=== PATIENT | female | born 1930 | race Caucasian/White ===

== ENCOUNTER 2016-08-10 19:27 | Inpatient (IN) | payer OTHER, BC ==
[2016-08-10 20:22] VITALS: BMI 20.2
[2016-08-10] MEDS ORDERED: ASPIRIN 81 MG CHEWABLE TABLETS PO ONE (21:42)
[2016-08-10] MEDS ORDERED: ASPIRIN 81 MG CHEWABLE TABLETS ONE (21:55)
[2016-08-10 22:21] LABS: BASOPHIL 0.6 % (0-2.0); EOSINOPHIL 1.1 % (0-4.5); MCHC 31.1 g/dl (32.0-36.0); MEAN CELL VOLUME 59.5 fl (80-96); MEAN PLT VOLUME 8.9 fl (7.5-11.1); PLATELET COUNT 152 K/MM3 (134-434); RDW 15.9 % (11.6-15.6); WHITE BLOOD COUNT 4.2 K/mm3 (4.0-10.0)
[2016-08-10 22:22] LABS: MCH 18.5 pg (25.7-33.7)
[2016-08-10] MEDS ORDERED: HEPARIN NA (PORCINE) 5,000 UNITS/ML 1ML VIAL IVPUSH PRN ×2 (22:23)
--- NOTE | 2016-08-10 22:23 | PDOC ---
History of Present Illness - General History Source: Patient Exam Limitations: No Limitations <Cynthia Chacon - Last Filed: 08/10/16 23:19> <Faby Rodriges - Last Filed: 08/12/16 02:29> - General Chief Complaint: Palpitations Stated Complaint: PCP SENT/ADMIT Time Seen by Provider: 08/10/16 21:13 - History of Present Illness Initial Comments: 08/10/16 23:19 Patient is a 86 year old female with a significant past medical history of colon ca, CVA with left residule weakness, CAD (stents in place), diastolic dysfunction and parathyroidism who presents to the ED sent by Dr. Arora with new onset Afib. As per Dr. Arora the patient has a 2:1 aflutter. Patient reports reports palpitations earlier today for which she was seen by Dr. Arora. PCP - Dr. Lozoya Cardiology - Dr. Arora (Cynthia Chacon) Past History <Cynthia Chacon - Last Filed: 08/10/16 23:19> - Past Medical History Cancer: Yes (colon) Cardiac Disorders: Yes (3 cardiac stents 2008, 1 stent 2009) CVA: Yes (2008, residule weakness to left side) Thyroid Disease: (parathyroid "problem) Other medical history: macular degeneration, thalassemia trait - Surgical History Abdominal Surgery: Yes (colon resection) Cardiac Surgery: Yes (4 stents) - Immunization History Immunization Up to Date: Yes - Psycho/Social/Smoking Cessation Hx Suicidal Ideation: No Smoking History: Former smoker If you are a former smoker, when did you quit?: 1999 Information on smoking cessation initiated: No Hx Alcohol Use: No Drug/Substance Use Hx: No <Faby Rodriges - Last Filed: 08/12/16 02:29> - Past Medical History Allergies/Adverse Reactions: Allergies Allergy/AdvReac Type Severity Reaction Status Date / Time No Known Allergies Allergy Verified 08/10/16 20:19 Home Medications: Ambulatory Orders Metoprolol Succinate [Toprol Xl] 100 mg PO DAILY 08/10/16 Ranolazine [Ranexa] 500 mg PO DAILY 08/10/16 Rosuvastatin Calcium [Crestor] 20 mg PO ASDIR 08/10/16 Rosuvastatin Calcium [Crestor] 40 mg PO ASDIR 08/10/16 Telmisartan [Micardis] 80 mg PO DAILY 08/10/16 Apixaban [Eliquis -] 2.5 mg PO BID tablet 08/11/16 Review of Systems - Review of Systems Able to Perform ROS?: Yes <Cynthia Chacon - Last Filed: 08/10/16 23:19> <Faby Rodriges - Last Filed: 08/12/16 02:29> - Review of Systems Comments:: 08/10/16 23:22 CONSTITUTIONAL: Absent: fever, chills, diaphoresis, generalized weakness, malaise, loss of appetite HEENT: Absent: rhinorrhea, nasal congestion, throat pain, throat swelling, difficulty swallowing, mouth swelling, ear pain, eye pain, visual Changes CARDIOVASCULAR: Present: palpitations Absent: chest pain, syncope, irregular heart rate, lightheadedness, peripheral edema RESPIRATORY: Absent: cough, shortness of breath, dyspnea with exertion, orthopnea, wheezing, stridor, hemoptysis GASTROINTESTINAL: Absent: abdominal pain, abdominal distension, nausea, vomiting, diarrhea, constipation, melena, hematochezia GENITOURINARY: Absent: dysuria, frequency, urgency, hesitancy, hematuria, flank pain, genital pain MUSCULOSKELETAL: Absent: myalgia, arthralgia, joint swelling SKIN: Absent: rash, itching, pallor HEMATOLOGIC/IMMUNOLOGIC: Absent: easy bleeding, easy bruising, lymphadenopathy, frequent infections ENDOCRINE: Absent: unexplained weight gain, unexplained weight loss, heat intolerance, cold intolerance NEUROLOGIC: Absent: headache, focal weakness or paresthesias, dizziness, unsteady gait, seizure, mental status changes, bladder or bowel incontinence PSYCHIATRIC: Absent: anxiety, depression, suicidal or homicidal ideation, hallucinations. (Cynthia Chacon) *Physical Exam <Cynthia Chacon - Last Filed: 08/10/16 23:19> <Faby Rodriges - Last Filed: 08/12/16 02:29> - Vital Signs Last Vital Signs Temp Pulse Resp BP Pulse Ox 98 F 78 18 109/78 98 08/11/16 12:17 08/11/16 12:17 08/11/16 12:17 08/11/16 12:17 08/11/16 12:17 - Physical Exam Comments: 08/10/16 23:23 GENERAL: Well developed, well nourished. Awake and alert. No acute distress. HEENT: Normocephalic, atraumatic. PERRLA, EOMI. No conjunctival pallor. Sclera are non- icteric. Moist mucous membranes. Oropharynx is clear. NECK: Supple. Full ROM. No JVD. Carotid pulses 2+ and symmetric, without bruits. No thyromegaly. No lymphadenopathy. CARDIOVASCULAR: Regular rate and rhythm. No murmurs, rubs, or gallops. Distal pulses are 2+ and symmetric. PULMONARY: No evidence of respiratory distress. Lungs clear to auscultation bilaterally. No wheezing, rales or rhonchi. ABDOMINAL: Soft. Non-tender. Non-distended. No rebound or guarding. No organomegaly. Normoactive bowel sounds. MUSCULOSKELETAL Normal range of motion at all joints. No bony deformities or tenderness. No CVA tenderness. EXTREMITIES: No cyanosis. No clubbing. No edema. No calf tenderness. SKIN: Warm and dry. Normal capillary refill. No rashes. No jaundice. NEUROLOGICAL: Alert, awake, appropriate. Cranial nerves 2-12 intact. No deficits to light touch and temperature in face, upper extremities and lower extremities. No motor deficits in the in face, upper extremities and lower extremities. Normoreflexic in the upper and lower extremities. Normal speech. Toes are down-going bilaterally. Gait is normal without ataxia. PSYCHIATRIC: Cooperative. Good eye contact. Appropriate mood and affect. (Cynthia Chacon) ED Treatment Course - LABORATORY CBC & Chemistry Diagram: 08/10/16 22:10 08/10/16 22:10 <Cynthia Chacon - Last Filed: 08/10/16 23:19> - LABORATORY CBC & Chemistry Diagram: 08/10/16 22:10 08/10/16 22:10 <Faby Rodriges - Last Filed: 08/12/16 02:29> - ADDITIONAL ORDERS Additional order review: 08/10/16 22:10 RBC 4.99 MCV 59.5 L MCHC 31.1 L RDW 15.9 H MPV 8.9 Neutrophils % 51.0 Lymphocytes % 35.6 Monocytes % 11.7 H Eosinophils % 1.1 Basophils % 0.6 - RADIOLOGY Radiology Studies Ordered: Category Date Time Status CHEST X-RAY PORTABLE* [RAD] Stat Radiology 08/10/16 21:42 Completed - Medications Given in the ED: ED Medications Discontinued Medications Generic Name Dose Route Start Last Admin Trade Name Armaan PRN Reason Stop Dose Admin Aspirin 162 mg 08/10/16 21:42 08/10/16 22:08 Asa - PO 08/10/16 21:43 162 mg ONCE ONE Administration Heparin Sodium (Porcine) 5,000 unit 08/10/16 22:23 08/10/16 23:14 Heparin - IVPUSH 5,000 unit PRN PRN Administration Heparin Heparin Sodium (Porcine) 25, 500 mls @ 16 mls/hr 08/10/16 22:30 08/11/16 07:16 000 unit/ Sodium Chloride IV 500 unit/hr TITR BERNARD Titration Protocol 800 UNIT/HR Metoprolol Succinate 100 mg 08/11/16 10:00 08/11/16 09:58 Toprol Xl - PO 100 mg DAILY BERANRD Administration Ranolazine 500 mg 08/11/16 10:00 08/11/16 09:58 Ranexa - PO 500 mg DAILY BERNARD Administration Valsartan 320 mg 08/11/16 10:00 08/11/16 09:57 Diovan - PO 320 mg DAILY BERNARD Administration Medical Decision Making <Cynthia Chacon - Last Filed: 08/10/16 23:19> <Faby Rodriges - Last Filed: 08/12/16 02:29> - Medical Decision Making 08/10/16 22:56 A call was placed to Dr. Arora. Awaiting a call back from Dr. Rivera who is accounting manager controller. 08/10/16 22:[address] Rivera. (Cynthia Chacon) 08/12/16 02:25 this 86 yo female was initially referred in by Dr Zaidi for new onset aflutter -she had gone to his office for routine visit.she didnt have chest pain but had felt palpitations -upon arrival to ER ,ekg showed she was back in sinus rhythm -however her troponin came back elevated and so she was started on heparin and admitted to telemetry (Faby Rodriges) *DC/Admit/Observation/Transfer <Cynthia Chacon - Last Filed: 08/10/16 23:19> - Discharge Dispostion Admit: Yes <Faby Rodriges - Last Filed: 08/12/16 02:29> Diagnosis at time of Disposition: Palpitations, Elevated troponin - Discharge Dispostion Condition at time of disposition: Improved - Referrals - Attestations Scribe Attestion: 08/10/16 23:23 Documentation prepared by WILMER Bah, acting as medical dosimetrist for Faby Rodriges MD. (Cynthia Chacon)
[2016-08-10] MEDS ORDERED: HEPARIN - 25,000 UNIT in SODIUM CHLORIDE 495 ML IV SCH (22:30)
[2016-08-10 22:35] LABS: INR 1.02 (0.82-1.09); PROTHROMBIN TIME (PATIENT) 11.2 SEC (9.98-11.88)
[2016-08-10 22:46] LABS: ALBUMIN 3.8 g/dl (3.4-5.0); BILIRUBIN,TOTAL 0.5 mg/dL (0.2-1.0); CALCIUM 12.4 mg/dL (8.5-10.1); CREATININE 1.6 mg/dL (0.55-1.02); MAGNESIUM 2.4 mg/dL (1.8-2.4); TOT PROT 7.1 g/dl (6.4-8.2)
[2016-08-10 23:00] LABS: TROPONIN I 1.15 ng/ml (0.00-0.05)
[2016-08-10] MEDS ORDERED: HEPARIN INFUSION - 500 ML IVPB ONE (23:03)
[2016-08-10 23:41] LABS: ANISOCYTOSIS 3+; HYPOCHROMIA 2+; MICROCYTOSIS 3+; PLATELET ESTIMATE ADEQUATE (NORMAL)
[2016-08-10 23:54] LABS: URINE APPEARANCE CLEAR; URINE BILIRUBIN NEGATIVE (NEGATIVE); URINE BLOOD NEGATIVE (NEGATIVE); URINE COLOR STRAW; URINE GLUCOSE (UA) NEGATIVE (NEGATIVE); URINE KETONE NEGATIVE (NEGATIVE); URINE NITRITE NEGATIVE (NEGATIVE); URINE PROTEIN NEGATIVE (NEGATIVE); URINE UROBILINOGEN NEGATIVE E.U./dl (0.2-1.0)
[2016-08-11 00:08] LABS: URINE LEUK ESTERASE 2+ (NEGATIVE)
[2016-08-11 00:10] LABS: URINE BACTERIA RARE /hpf (NONE SEEN); URINE HYALINE CAST 1 /lpf; URINE RBC 4 /hpf (0-3); URINE WBC 24 /hpf (3-5)
[2016-08-11] MEDS ORDERED: RANOLAZINE E.R. 500 MG TABLET (FP) PO SCH (10:00)
[2016-08-11] MEDS ORDERED: VALSARTAN 160 MG TABLET (UD) PO SCH (10:00)
[2016-08-11] MEDS ORDERED: METOPROLOL SUCCINATE 100 MG TAB.SR.24H (FP) PO SCH (10:00)
--- NOTE | 2016-08-11 10:06 | HP ---
[id number] Chief Complaint: aflutter History of Present Illness: 86 yrs old female sent from Nursing Educator's office for new onset Aflutter. Apparently she was doing well when she felt palpitations and "uneasiness" yesterday. She went to see her internet marketing consultant for her appointment and found to have new onset Aflutter. Placed on heparin drip. No further complaints of palpitations , chest pain or dizziness No SOB History Source: Patient Limitations to Obtaining History: No Limitations - Past Medical History RETAIL AREA MANAGER: Yes: CVA (left sided weakness) Cardiovascular: Yes: CAD, CHF (diastolic dysfunction), HTN, Hyperlipdemia Gastrointestinal: Yes: Cancer (colon cancer) Endocrine: Yes: Hyperparathyroidism - Smoking History Smoking history: Former smoker If you are a former smoker, when did you quit?: 1999 - Alcohol/Substance Use Hx Alcohol Use: No Home Medications - Allergies Allergies/Adverse Reactions: Allergies Allergy/AdvReac Type Severity Reaction Status Date / Time No Known Allergies Allergy Verified 08/10/16 20:19 - Home Medications Home Medications: Ambulatory Orders Metoprolol Succinate [Toprol Xl] 100 mg PO DAILY 08/10/16 Ranolazine [Ranexa] 500 mg PO DAILY 08/10/16 Rosuvastatin Calcium [Crestor] 20 mg PO ASDIR 08/10/16 Rosuvastatin Calcium [Crestor] 40 mg PO ASDIR 08/10/16 Telmisartan [Micardis] 80 mg PO DAILY 08/10/16 Apixaban [Eliquis -] 2.5 mg PO BID tablet 08/11/16 Review of Systems - Review of Systems Constitutional: denies: Chills, Fever, Loss of Appetite, Weakness Cardiovascular: reports: Palpitations. denies: Chest Pain, Shortness of Breath Physical Examination Vital Signs: Vital Signs Temperature 97.9 F 08/11/16 09:56 Pulse Rate 88 08/11/16 09:56 Respiratory Rate 16 08/11/16 09:56 Blood Pressure 121/58 08/11/16 09:56 O2 Sat by Pulse Oximetry (%) 100 08/11/16 09:56 Constitutional: Yes: No Distress, Calm Cardiovascular: Yes: Regular Rate and Rhythm, Murmur (systolic murmur+) Respiratory: Yes: CTA Bilaterally Gastrointestinal: Yes: Normal Bowel Sounds, Soft. No: Distention, Tenderness Edema: No Psychiatric: Yes: Alert, Oriented Labs: Laboratory Last Values WBC 4.2 K/mm3 (4.0-10.0) 08/10/16 22:10 RBC 4.99 M/mm3 (3.60-5.2) 08/10/16 22:10 Hgb 9.2 GM/dL (10.7-15.3) L D 08/10/16 22:10 Hct 29.7 % (32.4-45.2) L 08/10/16 22:10 MCV 59.5 fl (80-96) L 08/10/16 22:10 MCHC 31.1 g/dl (32.0-36.0) L 08/10/16 22:10 RDW 15.9 % (11.6-15.6) H 08/10/16 22:10 Plt Count 152 K/MM3 (134-434) D 08/10/16 22:10 MPV 8.9 fl (7.5-11.1) 08/10/16 22:10 Neutrophils % 51.0 % (42.8-82.8) 08/10/16 22:10 Lymphocytes % 35.6 % (8-40) 08/10/16 22:10 Monocytes % 11.7 % (3.8-10.2) H 08/10/16 22:10 Eosinophils % 1.1 % (0-4.5) 08/10/16 22:10 Basophils % 0.6 % (0-2.0) 08/10/16 22:10 Platelet Estimate Adequate (NORMAL) 08/10/16 22:10 Hypochromic-Microcytic 2+ 08/10/16 22:10 Anisocytosis 3+ 08/10/16 22:10 Microcytosis 3+ 08/10/16 22:10 INR 1.02 (0.82-1.09) 08/10/16 22:10 PTT (Actin FS) > 400.0 SECONDS (26.9-34.4) H 08/11/16 05:25 Sodium 140 mmol/L (136-145) 08/10/16 22:10 Potassium 4.6 mmol/L (3.5-5.1) 08/10/16 22:10 Chloride 107 mmol/L (98-107) 08/10/16 22:10 Carbon Dioxide 23 mmol/L (21-32) 08/10/16 22:10 Anion Gap 10 (8-16) 08/10/16 22:10 BUN 24 mg/dL (7-18) H 08/10/16 22:10 Creatinine 1.6 mg/dL (0.55-1.02) H 08/10/16 22:10 Creat Clearance w eGFR 30.63 (>60) 08/10/16 22:10 Random Glucose 86 mg/dL (74-106) 08/10/16 22:10 Calcium 12.4 mg/dL (8.5-10.1) H 08/10/16 22:10 Magnesium 2.4 mg/dL (1.8-2.4) 08/10/16 22:10 Total Bilirubin 0.5 mg/dL (0.2-1.0) 08/10/16 22:10 AST 23 U/L (15-37) 08/10/16 22:10 ALT 14 U/L (12-78) 08/10/16 22:10 Alkaline Phosphatase 87 U/L (45-117) 08/10/16 22:10 Creatine Kinase 60 IU/L (26-192) 08/10/16 22:10 Troponin I 1.26 ng/ml (0.00-0.05) H* 08/11/16 09:14 Total Protein 7.1 g/dl (6.4-8.2) 08/10/16 22:10 Albumin 3.8 g/dl (3.4-5.0) 08/10/16 22:10 Triglycerides 67 mg/dL (35-160) 08/10/16 22:10 Cholesterol 164 mg/dL (50-200) 08/10/16 22:10 Total LDL Cholesterol 60 mg/dL (5-100) 08/10/16 22:10 HDL Cholesterol 108 mg/dL (40-60) H 08/10/16 22:10 Urine Color Straw 08/10/16 23:45 Urine Appearance Clear 08/10/16 23:45 Urine pH 6.0 (5.0-8.0) 08/10/16 23:45 Ur Specific [place] 1.009 (1.001-1.035) 08/10/16 23:45 Urine Protein Negative (NEGATIVE) 08/10/16 23:45 Urine Glucose (UA) Negative (NEGATIVE) 08/10/16 23:45 Urine Ketones Negative (NEGATIVE) 08/10/16 23:45 Urine Blood Negative (NEGATIVE) 08/10/16 23:45 Urine Nitrite Negative (NEGATIVE) 08/10/16 23:45 Urine Bilirubin Negative (NEGATIVE) 08/10/16 23:45 Urine Urobilinogen Negative E.U./dl (0.2-1.0) 08/10/16 23:45 Ur Leukocyte Esterase 2+ (NEGATIVE) H 08/10/16 23:45 Urine RBC 4 /hpf (0-3) 08/10/16 23:45 Urine WBC 24 /hpf (3-5) 08/10/16 23:45 Ur Epithelial Cells Rare /hpf (FEW) 08/10/16 23:45 Urine Bacteria Rare /hpf (NONE SEEN) 08/10/16 23:45 Hyaline Casts 1 /lpf 08/10/16 23:45 Imaging - Results Chest X-ray: Image Reviewed (clear) EKG: Image Reviewed (NSR,LVH) Problem List - Problems (1) Elevated troponin Code(s): R74.8 - ABNORMAL LEVELS OF OTHER SERUM ENZYMES (2) Palpitations Code(s): R00.2 - PALPITATIONS (3) Atrial flutter Code(s): I48.92 - UNSPECIFIED ATRIAL FLUTTER Assessment/Plan PLAN On Heparin infusion Continue with home meds spoke with Nursing Educator will start Eliquis Elevated troponins due to Atrial flutter She has converted to sinus on her own rate is controlled She will be dc home today on Eliquis Advised to follow up with Nursing Educator and with me within 2 weeks
--- NOTE | 2016-08-11 11:44 | DS ---
Physical Examination Vital Signs: Vital Signs Temperature 97.9 F 08/11/16 09:56 Pulse Rate 88 08/11/16 09:56 Respiratory Rate 16 08/11/16 09:56 Blood Pressure 121/58 08/11/16 09:56 O2 Sat by Pulse Oximetry (%) 100 08/11/16 09:56 Discharge Summary Reason For Visit: PALPITATIONS/ELEVATED TROPONIN LEVELS Current Active Problems Elevated troponin (Acute) Palpitations (Acute) Hospital Course: spoke with DR Arora Pt converted to sinus on her own She is already anticoagulated with Heparin- now on Eliquis. Troponins elevated, Steel Layer aware- she has h/o CAD and is being treated medically. Elevated troponins due to rapid Aflutter Pt is now sinus Stable for dc home Condition: Improved - Instructions Referrals: Haim Arora MD [Primary Care Provider] - 1 Week Ai Anderson MD [Staff Physician] - Disposition: HOME - Home Medications Comprehensive Discharge Medication List: Ambulatory Orders Metoprolol Succinate [Toprol Xl] 100 mg PO DAILY 08/10/16 Ranolazine [Ranexa] 500 mg PO DAILY 08/10/16 Rosuvastatin Calcium [Crestor] 20 mg PO ASDIR 08/10/16 Rosuvastatin Calcium [Crestor] 40 mg PO ASDIR 08/10/16 Telmisartan [Micardis] 80 mg PO DAILY 08/10/16 Apixaban [Eliquis -] 2.5 mg PO BID tablet 08/11/16
--- NOTE | 2016-08-11 11:58 | PN ---
Progress Note (short form) - Note Progress Note: Chief Complaint: Events noted, notes reviewed, denies any chest pain or dyspnea , currently in sinus rhythm, converted spontaneously to sinus rhythm History of Present Illness: Seen and examined on telemetry. Full consult dictated - Current Medication List Current Medications Heparin Sodium (Porcine) (Heparin -) 1,000 unit IVPUSH PRN PRN PRN Reason: Heparin Heparin Sodium (Porcine) (Heparin -) 5,000 unit IVPUSH PRN PRN PRN Reason: Heparin Last Admin: 08/10/16 23:14 Dose: 5,000 unit Heparin Sodium (Porcine) 25, (000 unit/ Sodium Chloride) 500 mls @ 16 mls/hr IV TITR BERNARD; 800 UNIT/HR PRN Reason: Protocol Last Titration: 08/11/16 07:16 Dose: 500 unit/hr Metoprolol Succinate (Toprol Xl -) 100 mg PO DAILY [facility] Last Admin: 08/11/16 09:58 Dose: 100 mg Ranolazine (Ranexa -) 500 mg PO DAILY [facility] Last Admin: 08/11/16 09:58 Dose: 500 mg Rosuvastatin Calcium (Crestor -) 20 mg PO HS [facility] Valsartan (Diovan -) 320 mg PO DAILY [facility] Last Admin: 08/11/16 09:57 Dose: 320 mg - Review of Systems Cardiovascular: As noted above Respiratory: denies: Cough or Sputum Production Gastrointestinal: denies: Nausea, Vomiting, Diarrhea, Constipation or Abdominal Pain Musculoskeletal: No symptoms reported Neurological: No symptoms reported - Objective Vital Signs: Last Vital Signs Temp Pulse Resp BP Pulse Ox 97.9 F 88 16 121/58 100 08/11/16 09:56 08/11/16 09:56 08/11/16 09:56 08/11/16 09:56 08/11/16 09:56 Neck: Supple Negative JVD Cardiovascular: S1 S2 Regular Rate Rhythm grade 2/6 AMBER Respiratory: Clear to A&P Gastrointestinal: Soft Benign Normal Bowel Sounds Ext: Negative Edema Labs: CBC, BMP 08/10/16 22:10 08/10/16 22:10 INR, PTT INR 1.02 (0.82-1.09) 08/10/16 22:10 Troponin, BNP 08/10/16 08/11/16 22:10 09:14 Troponin I 1.15 H* 1.26 H* Hepatic Panel Total Bilirubin 0.5 mg/dL (0.2-1.0) 08/10/16 22:10 AST 23 U/L (15-37) 08/10/16 22:10 ALT 14 U/L (12-78) 08/10/16 22:10 Alkaline Phosphatase 87 U/L (45-117) 08/10/16 22:10 Albumin 3.8 g/dl (3.4-5.0) 08/10/16 22:10 Assessment/Plan ASSESSMENT: 1. Paroxysmal atrial flutter with [id number] score of 7, to initiate A/C with Eliquis 2. CAD angina pectoris post PCI/stent post restonosis for medical management positive Troponin I related to demand ischemic injury in context of the above noted arrhythmia 3. Diastolic LV dysfunction with class 0-I NYHA classification LV failure 4. HTN 5. Hypercholesterolemia 6. MR moderate in severity 7. History of CVA 8. Carotid stenosis 9. Hypercalcemia related to Hyperparathyroidism 10. Anemia PLAN: 1. Continue Toprol XL 2. Continue Micardis 3. Continue Ranexa 4. Continue Eliquis and ASA but D/C Plavix 5. Continue Crestor 6. Can be D/C home from cardiovascular point of view since patient has no clinical syndrome of ACS, and Troponin I elevation is related to demand ischemic injury in context of the above noted arrhythmia, tachycardia related ischemia Haim Arora MD
[2016-08-11 12:19] VITALS: BP 109/78; PULSE 78; TEMP 98
--- NOTE | 2016-08-11 17:34 | EKG ---
Test Reason : Blood Pressure : / mmHG Vent. Rate : 073 BPM Atrial Rate : 073 BPM P-R Int : 270 ms QRS Dur : 098 ms QT Int : 368 ms P-R-T Axes : 068 044 211 degrees QTc Int : 405 ms SINUS RHYTHM WITH 1ST DEGREE A-V BLOCK LEFT VENTRICULAR HYPERTROPHY WITH REPOLARIZATION ABNORMALITY ABNORMAL ECG WHEN COMPARED WITH ECG OF 17-DEC-2007 12:23, T WAVE VARIATION Confirmed by VIC ABREU MD ([id number]) on 08/11/2016 5:34:00 PM Referred By: Confirmed By:VIC ABREU MD
[2016-08-11] MEDS ORDERED: ROSUVASTATIN CA 20 MG TABLET (FP) PO SCH (22:00)
[2016-08-11] MEDS ORDERED: APIXABAN 2.5 MG TABLET PO SCH (22:00)
--- NOTE | 2016-08-11 23:40 | CONS ---
DATE OF CONSULTATION: 08/11/2016 REQUESTED BY: Ai Anderson MD CHIEF COMPLAINT: Evaluation of cardiac arrhythmia. The patient is well-known to our service. She was sent to the emergency room from our office. An 86-year-old female with known history of coronary artery disease, status post percutaneous coronary intervention, stenting, ROBERT to LAD May 21, 2008; restenosis with repeat intervention ROBERT to LAD October 21, 2009; residual ischemia on myocardial perfusion imaging study December 19, 2014; angina pectoris; diastolic left ventricular dysfunction with class 0-1 [place] Heart Association classification left ventricular failure; aortic valve disease; aortic valve sclerosis; mitral valve disease; mitral valve regurgitation; hypertensive cardiovascular disease; hypercholesterolemia; cerebrovascular disease with no significant residual deficit; carotid stenosis, moderate in severity; peripheral vascular disease; thyroid nodule; chronic hypercalcemia related to hyperparathyroidism, refusing parathyroidectomy; chronic kidney disease; nephrolithiasis; degenerative joint disease; 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 The patient did not report any chest discomfort. The patient denied any dyspnea, orthopnea, paroxysmal nocturnal dyspnea or peripheral edema. The patient did not report any dizziness or lightheadedness, although the patient was noted to be hypotensive with a systolic blood pressure of 90. The patient was advised hospitalization and she presented to [facility] Emergency Room, at which point she was noted to be in sinus rhythm. The patient currently is sustaining sinus rhythm and she was noted to have elevated troponin I level. The patient denies any chest discomfort. PAST MEDICAL HISTORY: Coronary artery disease, status post percutaneous coronary intervention, stenting, angina pectoris, diastolic left ventricular dysfunction with class 0-1 [place] Heart Association classification left ventricular failure, hypertensive cardiovascular disease, hypercholesterolemia, aortic valve sclerosis, mitral valve disease, mitral valve regurgitation, cerebrovascular disease with no significant residual deficit, carotid stenosis moderate in severity, thyroid nodules, chronic hypercalcemia related to hyperparathyroidism refusing parathyroidectomy, nephrolithiasis, degenerative joint disease and 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 SOCIAL HISTORY: Denies smoking. FAMILY HISTORY: Positive for coronary artery disease. ALLERGIES: None reported. MEDICAL THERAPY: At home included, Toprol XL 100 mg once a day, Micardis 80 mg once a day, Ranexa 500 mg tablet half tablet twice a day, Crestor 40 mg once a day, Plavix 75 mg once a day, Ecotrin 81 mg once a day, vitamin D 2,000 mg once a day and patient was given samples of Eliquis at 2.5 mg twice daily to initiate for the above-noted arrhythmia. REVIEW OF SYSTEMS: Head and Neck: Denies headache, photophobia, blurring of vision. Respiratory: No cough or sputum production. Cardiovascular: As note above. Gastrointestinal: Denies nausea, vomiting, diarrhea, abdominal discomfort. Genitourinary: No symptoms reported. Musculoskeletal: History of degenerative joint disease. PHYSICAL EXAMINATION: Vital Signs: Blood pressure 121/58 mmHg, pulse rate 88 beats per minute, regular. Head and Neck: Pupils react to light and accommodation. Extraocular muscles are intact. Anicteric sclerae. Negative JVD. No bruit appreciated. Chest: Clear to auscultation and percussion. Cardiovascular: S1, S2 regular. Grade 2/6 systolic ejection murmur. No clicks or gallops. Abdomen: Soft, benign. No active bowel sounds. Extremities: Negative edema. 1+ distal pulses. No calf tenderness. DIAGNOSTICS: Electrocardiogram reveals sinus rhythm with 1st degree AV block, increased voltage with T-wave abnormality consistent with ischemia. LABORATORY DATA: CBC revealed white blood cell count 4.2, hemoglobin 9.2, platelet 152. Basic metabolic profile revealed sodium 140, potassium 4.6, BUN 24, creatinine 1.6, glucose 86, troponin I 1.15, repeat 1.26. INR 1.02. ASSESSMENT: 1. Paroxysmal atrial flutter, with CHADS-VASc score of 7 to initiate anticoagulation therapy with Eliquis. Discussed risks, benefits, and alternatives in detail with the patient and her son who is at the bedside. 2. Coronary artery disease, angina pectoris, post percutaneous coronary intervention, stenting post restenosis, for medical management. Positive troponin I related to demand ischemic injury in context of the above-noted arrhythmia. 3. Diastolic left ventricular dysfunction with class 0-1 [place] Heart Association classification of ventricular failure. 4. Hypertensive cardiovascular disease. 5. Hypercholesterolemia. 6. Mitral regurgitation, moderate in severity. 7. History of cerebrovascular disease. 8. Carotid stenosis, moderate in severity. 9. Hypercalcemia related to hyperparathyroidism. 10. History of chronic anemia. RECOMMENDATION: 1. Continuation of Toprol XL. 2. Continuation of Micardis. 3. Continuation of Ranexa. 4. Continuation of Eliquis and aspirin but discontinuation of Plavix. 5. Continuation of Crestor therapy. 6. Patient can be discharged home from cardiovascular point of view since patient has no clinical symptoms of acute coronary syndrome and troponin I elevation is related to demand ischemic injury in context of the above-noted arrhythmia, tachycardia-related ischemia. Thank you for the kind referral. ODALYS MELGAR M.D. [id number]
== END 2016-08-11 12:24 | disposition home or self-care (01) | DRG 309 ==
LOC: JER 19:27 → JERBED 23:07 → UNDOADMIN 23:29 → JERBED 23:29
PROVIDERS: ADMIT Internal Medicine; ATTEND Internal Medicine
DX: I48.92 Unspecified atrial flutter (principal); I69.354 Hemiplegia and hemiparesis following cerebral infarction affecting left non-dominant side; I13.0 Hypertensive heart and chronic kidney disease with heart failure and stage 1 through stage 4 chronic kidney disease, or unspecified chronic kidney disease; I50.32 Chronic diastolic (congestive) heart failure; I25.10 Atherosclerotic heart disease of native coronary artery without angina pectoris; Z85.038 Personal history of other malignant neoplasm of large intestine; Z87.891 Personal history of nicotine dependence; D64.9 Anemia, unspecified; E21.3 Hyperparathyroidism, unspecified; Z95.5 Presence of coronary angioplasty implant and graft; I73.9 Peripheral vascular disease, unspecified; D56.3 Thalassemia minor; N18.9 Chronic kidney disease, unspecified; I34.0 Nonrheumatic mitral (valve) insufficiency; E04.1 Nontoxic single thyroid nodule
CPT/HCPCS: 36415; 71010-TC; 80053; 80061; 81003; 81015; 82550; 83721; 83735; 84484; 85025; 85610; 85730; 93005; 93010; 99285-25; J1644